=== PATIENT | female | born 1945 | race Caucasian/White ===

== ENCOUNTER → 2016-07-25 | Outpatient (CLI) | payer BC ==
[~2016-07-25] MED LIST: ASPEC81 PO; ATEN-173 PO; ATOR-24 PO; COEN100C11 PO; COEN150C PO; FRRS300 PO; LOSA100T65 PO; LOSA50TA6 PO; MULT-513 PO
--- NOTE | 2016-07-26 14:21 | MAMMOGRAPHY REPORT ---
BILATERAL DIGITAL SCREENING MAMMOGRAM TOMOSYNTHESIS WITH CAD: 07/25/2016 CLINICAL HISTORY: Routine screening. Patient has no complaints. Patient reported occasional bilate ral fluctuating nonfocal itchiness of the breasts. TECHNIQUE: Breast tomosynthesis in addition to standard 2D mammography was performed. Current study was also evaluated with a Computer Aided Detection (CAD) system. COMPARISON: Comparison is made to exams dated: 06/05/2015 mammogram, 01/25/2011 mammogram, 5 mammogram, 09/25/2009 ultrasound, and 08/24/2009 mammogram - [facility]. BREAST COMPOSITION: There are scattered areas of fibroglandular density in both breasts. FINDINGS: There are mild vascular calcifications and scattered benign-appearing rim calcifications a nd rodlike secretory calcifications in the breasts. No suspicious mass, architectural distortion or cluster of microcalcifications is seen. IMPRESSION: ACR BI-RADS CATEGORY 1: NEGATIVE There is no mammographic evidence of malignancy. A 1 year screening mammogram is recommended. Clini curtis follow-up is recommended for the reported nonfocal intermittent bilateral itchiness of the breas ts. The patient will receive written notification of the results. Approximately 10% of breast cancers are not detected with mammography. A negative mammographic repor t should not delay biopsy if a clinically suggestive mass is present. Sybil Pizarro M.D. ay/:07/26/2016 09:40:50 Willow Machine Operator: Veronica DONG)(Barbara), [facility] letter sent: Normal 1/2 BI-RADS Code: ACR BI-RADS Category 1: Negative
== END | disposition home or self-care (01) ==
LOC: C.MAMM 14:48
PROVIDERS: ATTEND Family Medicine
DX: Z12.31 Encounter for screening mammogram for malignant neoplasm of breast (principal)

== ENCOUNTER 2016-08-05 14:54 | Observation (INO) | payer BC ==
[~2016-08-05] VITALS: Ht 160 cm; Wt 83.4 kg
[~2016-08-05 14:54] MED LIST changes: -ASPEC81 PO; -COEN100C11 PO; -LOSA100T65 PO; -MULT-513 PO
[2016-08-05] MEDS ORDERED: SODIUM CHLORIDE 0.9% 1000ML 1,000 ML IV SCH (16:03)
--- NOTE | 2016-08-05 16:13 | EMERGENCY ROOM VISIT NOTE ---
History Report prepared by Hermila: Marissa Narayanan Under the Supervision of: Dr. Cristal Cheema M.D. First contact with patient: 15:59 Chief Complaint: TIA Stated Complaint: R/O TIA Nursing Triage Summary: PCP told patient to come. Neuro symptoms x2 weeks, flashes of light. Memory loss a few days ago and had a loss for words. Saw Dr. Aquino for possible eye problems, unremarkable. History of Present Illness The patient is a 71 year old female who presents to the Emergency Room with complaints of constant TIA symptoms beginning 2 weeks prior to arrival. The patient states that 2 weeks ago she saw flashes of light in her eye that lasted for one minute. She denies vision lost. The patient notes she then again experienced this light in her eye again one week later. She has been having trouble finding the correct word. She was seen by her coremaker supervisor and there is no damage to her retina. The patient then saw PCP and was referred to the ED to rule out TIA possibility. She notes a right sided headache. 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 Review of Systems See HPI for pertinent positives & negatives. A total of 10 systems reviewed and were otherwise negative. Past Medical & Surgical Medical Problems: (1) Hypertension Family History Patient reports no known family medical history. Social History Smoking Status: Former Smoker Marital Status: Housing Status: lives alone Occupation Status: employed Current/Historical Medications Scheduled Atenolol (Tenormin), 25 MG PO DAILY Atorvastatin (Lipitor), 40 MG PO DAILY Coenzyme Q10 (Ubidecarenone) (Coq-10), 100 MG PO DAILY Losartan Potassium (Cozaar), 100 MG PO DAILY Multivitamins/Minerals (Mvi With Minerals), 1 TAB PO DAILY Allergies Coded Allergies: No Known Allergies (Unverified , 10/09/14) Physical Exam Vital Signs Date Time Temp Pulse Resp B/P Pulse Ox O2 Delivery O2 Flow Rate FiO2 08/05/16 20:27 75 16 155/93 93 Room Air 08/05/16 18:42 71 18 175/91 99 Room Air 08/05/16 17:15 18 176/76 98 08/05/16 17:15 99 Room Air 08/05/16 14:59 36.6 85 17 187/99 99 Room Air Physical Exam CONSTITUTIONAL: No acute distress. HEENT: No icterus, moist mucous membranes NECK: No meningismus, trachea is midline. CARDIOVASCULAR: Regular rate, normal perfusion RESPIRATORY: Unlabored breathing. Clear to auscultation. GASTROINTESTINAL: Non-tender GENITOURINARY: No flank tenderness MUSCULOSKELETAL: Full range of motion NEUROLOGIC: No acute gross focal deficits. PSYCHIATRIC: Normal affect SKIN: Normal for ethnicity. Medical Decision & Procedures ER Provider Diagnostic Interpretation: X-ray results as stated below per my interpretation and radiologist interpretation. Other radiology results as stated below per my review and radiologist interpretation. HEAD CT NONCONTRAST CT DOSE: 601.98 mGy.cm HISTORY: Stroke symptoms. TECHNIQUE: Multiaxial CT images of the head were performed without the use of intravenous contrast. Automated exposure control was utilized for this study. Comparison: None. Findings: The paranasal sinuses and mastoid air cells are clear. The calvarium and skull base are intact. The ventricles and sulci are within normal limits. There is no mass, hematoma, midline shift, or acute infarct. A 5 mm hypodense focus within the periventricular white matter the right parietal lobe likely represents an old lacunar infarct. Calcifications within the bilateral carotid siphons. Impression: No acute intracranial abnormality. Electronically signed by: See Castro M.D. 08/05/2016 6:43 PM Dictated Date/Time: 08/05/2016 6:41 PM CHEST ONE VIEW PORTABLE CLINICAL HISTORY: Stroke COMPARISON STUDY: No previous studies for comparison. FINDINGS: The heart is enlarged. There is interstitial thickening, a finding of uncertain chronicity. There is no lobar consolidation. There are no pleural effusions.[ There is calcific tendinitis involving both shoulders. IMPRESSION: Cardiomegaly and interstitial thickening. No evidence of lobar consolidation Electronically signed by: Akin Trent M.D. 08/05/2016 4:22 PM Dictated Date/Time: 08/05/2016 4:21 PM Brain MRI WITH AND WITHOUT CONTRAST HISTORY: visual flashed left eye, trouble finding words today, mild right-sided headache TECHNIQUE: Multiplanar multisequence MRI of the brain was performed both before and after the intravenous administration of contrast. COMPARISON STUDY: None. FINDINGS: There are no areas of restricted diffusion to suggest acute infarction. The midline structures are intact. The paranasal sinuses are clear. The mastoid air cells are clear. The ventricles and sulci are within normal limits for age. There is no mass, hematoma, midline shift. The major vascular flow-voids at the skull base are well maintained. Postcontrast sequences show no areas of abnormal enhancement. A 4 mm focus of encephalomalacia within the right parietal periventricular white matter. This could be due to a prominent perivascular space or old lacunar infarct. There is mild surrounding T2 hyperintensity. IMPRESSION: No acute intracranial abnormality. Electronically signed by: See Castro M.D. 08/05/2016 6:49 PM Dictated Date/Time: 08/05/2016 6:44 PM Laboratory Results 08/05/16 16:40 Red Blood Count 4.00, Mean Corpuscular Volume 91.0, Mean Corpuscular Hemoglobin 31.3, Mean Corpuscular Hemoglobin Concent 34.3, Mean Platelet Volume 9.4, Neutrophils (%) (Auto) 74.0, Lymphocytes (%) (Auto) 15.2, Monocytes (%) (Auto) 6.3, Eosinophils (%) (Auto) 4.1, Basophils (%) (Auto) 0.2, Neutrophils # (Auto) 6.56, Lymphocytes # (Auto) 1.35, Monocytes # (Auto) 0.56, Eosinophils # (Auto) 0.36, Basophils # (Auto) 0.02 08/05/16 16:40 Test 08/05/16 16:40 08/05/16 16:59 White Blood Count 8.87 K/uL (4.8-10.8) Red Blood Count 4.00 M/uL (4.2-5.4) Hemoglobin 12.5 g/dL (12.0-16.0) Hematocrit 36.4 % (37-47) Mean Corpuscular Volume 91.0 fL (80-100) Mean Corpuscular Hemoglobin 31.3 pg (25-34) Mean Corpuscular Hemoglobin Concent 34.3 g/dl (32-36) Platelet Count 202 K/uL (130-400) Mean Platelet Volume 9.4 fL (7.4-10.4) Neutrophils (%) (Auto) 74.0 % Lymphocytes (%) (Auto) 15.2 % Monocytes (%) (Auto) 6.3 % Eosinophils (%) (Auto) 4.1 % Basophils (%) (Auto) 0.2 % Neutrophils # (Auto) 6.56 K/uL (1.4-6.5) Lymphocytes # (Auto) 1.35 K/uL (1.2-3.4) Monocytes # (Auto) 0.56 K/uL (0.11-0.59) Eosinophils # (Auto) 0.36 K/uL (0-0.5) Basophils # (Auto) 0.02 K/uL (0-0.2) RDW Standard Deviation 43.5 fL (36.4-46.3) RDW Coefficient of Variation 13.1 % (11.5-14.5) Immature Granulocyte % (Auto) 0.2 % Immature Granulocyte # (Auto) 0.02 K/uL (0.00-0.02) Prothrombin Time 10.0 SECONDS (9.0-12.0) Prothromb Time International Ratio 0.9 (0.9-1.1) Activated Partial Thromboplast Time 26.9 SECONDS (21.0-31.0) Partial Thromboplastin Ratio 1.0 Anion Gap 12.0 mmol/L (3-11) Est Creatinine Clear Calc Drug Dose 55.7 ml/min Estimated GFR () 70.2 Estimated GFR (Non- 60.6 BUN/Creatinine Ratio 19.5 (10-20) Calcium Level 9.2 mg/dl (8.5-10.1) Total Creatine Kinase 72 U/L (26-192) Creatine Kinase MB 2.5 ng/ml (0.5-3.6) Creatine Kinase MB Ratio 3.5 (0-3.0) Troponin I < 0.015 ng/ml (0-0.045) Bedside Glucose 101 mg/dl (70-90) Labs reviewed by ED physician. Medications Administered Medications (Trade) Dose Ordered Sig/Rose Route Start Time Stop Time Status Last Admin Dose Admin Sodium Chloride (Nss 1000ml) 1,000 ml @ 50 mls/hr Q20H IV 08/05/16 16:03 09/04/16 16:02 08/05/16 18:40 50 MLS/HR Aspirin (Aspirin Chew) 81 mg NOW PO 1/27/17 19:00 09/04/16 18:59 08/05/16 19:06 81 MG ECG Indication: other (TIA symptoms) Rate (beats per minute): 65 Rhythm: normal sinus Findings: no ectopy, other (normal axis, nonspecific ST fidnings ) ED Course 1603: Sodium Chloride 1,000 ml @ 50 mls/hr IV. 1606: Past medical records reviewed. The patient was evaluated in room C6. A complete history and physical examination was performed. 1830: Gadavist 8 mmol IV. 1850: Discussed the patient's case with Dr. Nacho KENNY. The patient will be evaluated for further management. 190: Aspirin Chew 81 mg PO. Medical Decision Differential diagnoses include but are not limited to; TIA, complex migraine. 71-year-old presents into the emergency department for TIA workup at the prompting of the primary care office. Patient notes she had flashes of light in the left eye 3 weeks ago followed by period of 2 weeks with no symptoms and another episode of flashing of lights in the left eye 6 days ago. She was seen by the PA in the primary care office and notes she was seen by her coremaker supervisor who informed her that she had no retinal pathology. Upon neurologic examination in the primary care office today she was noted to have word finding difficulties at times although she is asymptomatic on presentation emergency room. Review of systems negative for focal neurologic complaints patient appears well and is neurologically intact this time. CT imaging negative for bleed and MRI subsequently normal as well. Aspirin 81 mg by mouth ordered and observation arranged with Dr. Griffith of the hospital service for TIA workup. Consults Time Called: 1849 Consulting Physician: Dr. Nacho KENNY Returned Call: 1850 Discussed the patient's case. The patient will be evaluated for further management. Impression Primary Impression: TIA (transient ischemic attack) Scribe Attestation The scribe's documentation has been prepared under my direction and personally reviewed by me in its entirety. I confirm that the note above accurately reflects all work, treatment, procedures, and medical decision making performed by me. Departure Information Dispostion Being Evaluated By Hospitalist Referrals No Doctor, Assigned (PCP)
--- NOTE | 2016-08-05 16:24 | DIAGNOSTIC IMAGING REPORT ---
CHEST ONE VIEW PORTABLE CLINICAL HISTORY: Stroke COMPARISON STUDY: No previous studies for comparison. FINDINGS: The heart is enlarged. There is interstitial thickening, a finding of uncertain chronicity. There is no lobar consolidation. There are no pleural effusions.[ There is calcific tendinitis involving both shoulders. IMPRESSION: Cardiomegaly and interstitial thickening. No evidence of lobar consolidation Electronically signed by: Akin Trent M.D. 08/05/2016 4:22 PM Dictated Date/Time: 08/05/2016 4:21 PM
[2016-08-05] MEDS ORDERED: MULT-513 PO (16:29)
[2016-08-05] MEDS ORDERED: COEN100C11 PO (16:29)
[2016-08-05] MEDS ORDERED: LOSA100T65 PO (16:29)
[2016-08-05 16:49] LABS: BASO % 0.2 %; BASO ABS # 0.02 K/uL (0-0.2); COMPLETE YES; EOS % 4.1 %; HEMATOCRIT 36.4 % (37-47); IG% 0.2 %; LYMPH % 15.2 %; LYMPH ABS # 1.35 K/uL (1.2-3.4); MEAN CORPUSCULAR HEMOGLOBIN 31.3 pg (25-34); MEAN CORPUSCULAR HGB CONC 34.3 g/dl (32-36); MEAN PLATELET VOLUME 9.4 fL (7.4-10.4); MONO % 6.3 %; PLATELET COUNT 202 K/uL (130-400); WHITE BLOOD COUNT 8.87 K/uL (4.8-10.8)
[2016-08-05 17:03] LABS: INR 0.9 (0.9-1.1)
[2016-08-05 17:14] LABS: BLOOD UREA NITROGEN 18 mg/dl (7-18); BUN/CREATININE RATIO 19.5 (10-20); CALCIUM 9.2 mg/dl (8.5-10.1); CARBON DIOXIDE 24 mmol/L (21-32); CHLORIDE 106 mmol/L (98-107); CREATININE 0.94 mg/dl (0.60-1.20); GLUCOSE 107 mg/dl (70-99); POTASSIUM 3.6 mmol/L (3.5-5.1); SODIUM 142 mmol/L (136-145)
[2016-08-05 17:19] LABS: CKMB/CK RATIO 3.5 (0-3.0)
[2016-08-05] MEDS ORDERED: GADAVIST IV PRN (18:30)
--- NOTE | 2016-08-05 18:45 | DIAGNOSTIC IMAGING REPORT ---
HEAD CT NONCONTRAST CT DOSE: 601.98 mGy.cm HISTORY: Stroke symptoms. TECHNIQUE: Multiaxial CT images of the head were performed without the use of intravenous contrast. Automated exposure control was utilized for this study. Comparison: None. Findings: The paranasal sinuses and mastoid air cells are clear. The calvarium and skull base are intact. The ventricles and sulci are within normal limits. There is no mass, hematoma, midline shift, or acute infarct. A 5 mm hypodense focus within the periventricular white matter the right parietal lobe likely represents an old lacunar infarct. Calcifications within the bilateral carotid siphons. Impression: No acute intracranial abnormality. Electronically signed by: See Castro M.D. 08/05/2016 6:43 PM Dictated Date/Time: 08/05/2016 6:41 PM
--- NOTE | 2016-08-05 18:50 | DIAGNOSTIC IMAGING REPORT ---
Brain MRI WITH AND WITHOUT CONTRAST HISTORY: visual flashed left eye, trouble finding words today, mild right-sided headache TECHNIQUE: Multiplanar multisequence MRI of the brain was performed both before and after the intravenous administration of contrast. COMPARISON STUDY: None. FINDINGS: There are no areas of restricted diffusion to suggest acute infarction. The midline structures are intact. The paranasal sinuses are clear. The mastoid air cells are clear. The ventricles and sulci are within normal limits for age. There is no mass, hematoma, midline shift. The major vascular flow-voids at the skull base are well maintained. Postcontrast sequences show no areas of abnormal enhancement. A 4 mm focus of encephalomalacia within the right parietal periventricular white matter. This could be due to a prominent perivascular space or old lacunar infarct. There is mild surrounding T2 hyperintensity. IMPRESSION: No acute intracranial abnormality. Electronically signed by: See Castro M.D. 08/05/2016 6:49 PM Dictated Date/Time: 08/05/2016 6:44 PM
[2016-08-05] MEDS ORDERED: ASPIRIN 81 MG CHEW PO SCH (19:00)
[2016-08-05] MEDS ORDERED: PHARMACIST DISCHARGE MED REC CONSULT PRN (20:15)
[2016-08-05] MEDS ORDERED: PNEUMOCOCCAL POLYSACCHARIDES 25 MCG/0.5 ML VIAL/SYR IM. ONE (20:15)
[2016-08-05] MEDS ORDERED: ONDANSETRON INJ 2 MG/ML 2 ML VIAL IV PRN (20:15)
[2016-08-05] MEDS ORDERED: ALUMINUM/MAGNESIUM/SIMETH (MAALOX MAX) 30 ML UDC PO PRN (20:15)
[2016-08-05] MEDS ORDERED: INFLUENZA VIRUS QUAD VACCINE 0.5 ML SYR IM. ONE (20:15)
[2016-08-05] MEDS ORDERED: POLYETHYLENE (MIRALAX) 17 GM PACK PO PRN (20:15)
[2016-08-05] MEDS ORDERED: ACETAMINOPHEN 325 MG TAB PO PRN (20:15)
[2016-08-05] MEDS ORDERED: NITROGLYCERIN 0.4 MG SL PER TAB CHARGE SL PRN (20:15)
[2016-08-05] MEDS ORDERED: MAGNESIUM HYDROXIDE SUSP 30 ML UDC PO PRN (20:15)
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
[2016-08-05] MEDS ORDERED: PNEUMOCOCCAL ADMINISTRATION CHARGE ONE (21:15)
[2016-08-05] MEDS ORDERED: INFLUENZA ADMINISTRATION CHARGE ONE (21:15)
[2016-08-05 21:37] VITALS: BP 186/75; PULSE 74; TEMP 36.6; O2SAT 94; Ht 160 cm; Wt 83.4 kg
--- NOTE | 2016-08-05 21:38 | DIAGNOSTIC IMAGING REPORT ---
CAROTID ARTERY ULTRASOUND CLINICAL HISTORY: Transient ischemic attack. COMPARISON STUDY: None. TECHNIQUE: Real-time, grayscale, and color Doppler sonography of the carotid and vertebral arteries was performed. Images were viewed in the transverse and longitudinal planes. FINDINGS: There is mild atherosclerotic plaque. Velocity measurements are listed below. COMMON CAROTID PEAK SYSTOLIC VELOCITY (CM/S): RIGHT 87 LEFT 100 ICA PEAK SYSTOLIC VELOCITY (CM/S): RIGHT 92 LEFT 77 The systolic ratios between the internal to common carotid arteries were normal. Antegrade flow is seen in the vertebral arteries. The external carotid arteries are patent. Blood pressure in the right arm measured 162/77. Blood pressure in the left arm measured 138/72. IMPRESSION: No evidence of a hemodynamically significant stenosis. Electronically signed by: Santana Funez M.D. 08/05/2016 9:37 PM Dictated Date/Time: 08/05/2016 9:34 PM
[2016-08-05 21:53] VITALS: BP 150/76
[2016-08-05 22:38] LABS: BENZODIAZEPINE, URINE NEG (NEG); COCAINE,URINE NEG (NEG); PHENCYCLIDINE, URINE NEG (NEG)
[2016-08-05 23:34] VITALS: BP 159/75; PULSE 77; TEMP 36.5; O2SAT 95
[2016-08-06 03:38] VITALS: BP 153/72; PULSE 63; TEMP 36.6; O2SAT 97
[2016-08-06 07:07] LABS: BUN/CREATININE RATIO 19.9 (10-20); CREATININE 0.89 mg/dl (0.60-1.20); ESTIMATED AVERAGE GLUCOSE 128 mg/dl; HA1C FLAG Normal (Normal); POTASSIUM 3.9 mmol/L (3.5-5.1)
[2016-08-06 07:56] VITALS: BP 136/75; PULSE 61; TEMP 36.7; O2SAT 96
[2016-08-06] MEDS ORDERED: CEROVITE ADV FORMULA TAB PO SCH (09:00)
[2016-08-06] MEDS ORDERED: LOSARTAN POTASSIUM 50 MG TAB PO SCH (09:00)
[2016-08-06] MEDS ORDERED: ATORVASTATIN 20 MG TAB PO SCH (09:00)
[2016-08-06] MEDS ORDERED: ASPIRIN 81 MG ECTAB PO SCH (09:00)
[2016-08-06 12:26] VITALS: BP 170/82; PULSE 62; TEMP 36.7; O2SAT 98
--- NOTE | 2016-08-06 14:30 | ECHOCARDIOGRAM REPORT ---
*NOTICE TO RECEIVING [employer] This information is strictly Confidential and protected under [place] law. [place] law prohibits you from making any further disclosure of this information unless further disclosure is expressly permitted by the written consent of the person to whom it pertains or is authorized by law. A general authorization for the release of medical or other information is not sufficient for this purpose. Hospital accepts no responsibility if the information is made available to any other person, INCLUDING THE PATIENT. Interpretation Summary * Name: ABDON GUZMAN Study Date: 08/06/2016 11:04 AM BP: 136/75 mmHg * Patient Location: C.2T\S\S240\S\1 HR: 61 * : 1945 (M/d/yyyy) Gender: Female Height: 63 in * Age: 71 yrs Ethnicity: [place] Weight: 187 lb * Ordering Physician: Anna Xiong * Referring Physician: Self, Referred * Performed By: Stephie Wood RDCS * * Reason For Study: CEREBRAL ISCHEMIA/ EMBOLUS * BSA: 1.9 m2 * History: CEREBRAL ISCHEMIA/ EMBOLUS * -- Conclusions -- * 1. Normal left ventricular size and systolic function. EF 60-65%. No regional wall motion abnormalities. No left ventricular hypertrophy. Type 1 diastolic dysfunction. * 2. No evidence of right to left shunt at the interatrial level following injection of agitated saline. * 3. Mild left atrial dilation. * 4. No significant valvular abnormalities visualized. * 5. Normal estimated right ventricular systolic pressure; 28 mmHg. * 6. No significant change from prior study on 07/28/2011. Procedure Details * A saline contrast injection was performed to assess for cardiac shunting. * The injection was performed through an intravenous line in the right arm. * The attending nurse who injected the saline contrast was GAYLE SPENCER RN. * A total of 20 cc of agitated saline was given. Left Ventricle * Normal left ventricular size and systolic function. EF 60-65%. No regional wall motion abnormalities. No left ventricular hypertrophy. Type 1 diastolic dysfunction. Right Ventricle * The right ventricle is normal in size and function. * The right ventricular systolic function is normal as assessed by tricuspid annular plane systolic excursion (TAPSE) (normal >1.5 cm). Atria * The left atrium is mildly dilated. * Right atrial size is normal. * There is no evidence of atrial septal defect, but resolution does not allow assessment for a patent foramen ovale. * No evidence of right to left shunt at the interatrial level following injection of agitated saline. Mitral Valve * The mitral valve leaflets appear normal. There is no evidence of stenosis, fluttering, or prolapse. * There is trace mitral regurgitation. Tricuspid Valve * The tricuspid valve is not well visualized, but is grossly normal. * There is no tricuspid stenosis. * There is trace tricuspid regurgitation. Aortic Valve * The aortic valve is normal in structure and function. * No hemodynamically significant valvular aortic stenosis. * Trace aortic regurgitation. Pulmonic Valve * The pulmonary valve is inadequately visualized, but the Doppler data is adequate for interpretation. * There is no pulmonic valvular stenosis. * Trace pulmonic valvular regurgitation. Great Vessels * The aortic root is normal size. * Aortic arch of normal dimension. * Normal pulmonary venous flow pattern. Pericardium/Pleural * There is no pericardial effusion. Great Vessels * Normal inferior vena cava size and collapsability with sniff indicates a normal right atrial pressure of 3 mmHg Left Ventricular Diastolic Function * Grade I diastolic dysfunction, (abnormal relaxation pattern). MMode 2D Measurements and Calculations IVSd 1.1 cm IVSs 1.6 cm LVIDd 4.2 cm LVIDs 2.6 cm LVPWd 1.0 cm LVPWs 1.5 cm IVS/LVPW 1.0 FS 37.1 % EDV(Teich) 78.0 ml ESV(Teich) 25.4 ml EF(Teich) 67.4 % EDV(cubed) 73.4 ml ESV(cubed) 18.3 ml EF(cubed) 75.1 % % IVS thick 49.7 % % LVPW thick 43.5 % LV mass(C)d 144.6 grams LV mass(C)dI 77.0 grams/m\S\2 LV mass(C)s 138.5 grams LV mass(C)sI 73.8 grams/m\S\2 SV(Teich) 52.6 ml SI(Teich) 28.0 ml/m\S\2 SV(cubed) 55.1 ml SI(cubed) 29.4 ml/m\S\2 Ao root diam 3.4 cm Ao root area 9.0 cm\S\2 LA dimension 4.6 cm LA/Ao 1.4 LVAd ap4 32.4 cm\S\2 LVLd ap4 8.1 cm EDV(MOD-sp4) 104.8 ml EDV(sp4-el) 110.2 ml LVAs ap4 17.1 cm\S\2 LVLs ap4 6.7 cm ESV(MOD-sp4) 38.2 ml ESV(sp4-el) 37.0 ml EF(MOD-sp4) 63.5 % EF(sp4-el) 66.5 % LVAd ap2 30.6 cm\S\2 LVLd ap2 8.1 cm EDV(MOD-sp2) 95.2 ml EDV(sp2-el) 98.5 ml LVAs ap2 19.1 cm\S\2 LVLs ap2 7.0 cm ESV(MOD-sp2) 44.6 ml ESV(sp2-el) 44.1 ml EF(MOD-sp2) 53.2 % EF(sp2-el) 55.3 % LVLd %diff -3.90 % EDV(MOD-bp) 110.7 ml LVLs %diff 3.2 % ESV(MOD-bp) 41.7 ml EF(MOD-bp) 62.4 % SV(MOD-sp4) 66.6 ml SI(MOD-sp4) 35.5 ml/m\S\2 SV(MOD-sp2) 50.6 ml SI(MOD-sp2) 27.0 ml/m\S\2 SV(MOD-bp) 69.0 ml SI(MOD-bp) 36.8 ml/m\S\2 SV(sp4-el) 73.3 ml SI(sp4-el) 39.0 ml/m\S\2 SV(sp2-el) 54.5 ml SI(sp2-el) 29.0 ml/m\S\2 Doppler Measurements and Calculations MV E max teodoro 78.7 cm/sec MV A max teodoro 83.6 cm/sec MV E/A 0.94 MV dec time 0.21 sec Ao V2 max 133.7 cm/sec Ao max PG 7.2 mmHg Ao max PG (full) 2.0 mmHg LV V1 max PG 5.1 mmHg LV V1 max 113.2 cm/sec TV E max teodoro 31.3 cm/sec TR max teodoro 248.4 cm/sec RVSP(TR) 27.7 mmHg RAP systole 3.0 mmHg
[2016-08-06 15:16] VITALS: BP 156/84; PULSE 57; TEMP 36.7; O2SAT 97
[2016-08-06] MEDS ORDERED: ASPEC81 PO (18:28)
--- NOTE | 2016-08-06 18:30 | Discharge Instructions ---
Discharge Instructions Admission Reason for Admission: TIA Discharge Discharge Diagnosis / Problem: TIA Discharge Goals Goal(s): Improve disease control, Diagnostic testing Activity Recommendations Activity Limitations: resume your previous activity Driving or Machine Use: no limitations . Instructions / Follow-Up Instructions / Follow-Up Follow up with your PCP in 5-7 days. Current Hospital Diet Patient's current hospital diet: AHA Diet (Heart Healthy) Discharge Diet Recommended Diet: AHA Diet (Heart Healthy) Procedures Procedures Performed: NONE Pending Studies Studies pending at discharge: no Laboratory Results Hemoglobin A1c Test 08/06/16 06:12 Range/Units Estimated Average Glucose 128 mg/dl Hemoglobin A1c 6.1 H 4.5-5.6 % Medical Emergencies . Who to Call and When: Medical Emergencies: If at any time you feel your situation is an emergency, please call 911 immediately. . Non-Emergent Contact Non-Emergency issues call your: Primary Care Provider . . "Provider Documentation" section prepared by Trent Solano. VTE Core Measure Inpt VTE Proph given/why not?: Shon Mitchell, SCD's
[2016-08-06 18:33] VITALS: BP 156/84; PULSE 57; TEMP 36.7; O2SAT 97
--- NOTE | 2016-08-08 14:19 | Discharge Summary ---
Discharge Summary Admission Date: Aug 05, 2016 at 21:21 Discharge Date: Aug 06, 2016 Discharge Disposition: Home Principal Diagnosis: TIA Problems/Secondary Diagnoses: HTN Procedures: None. Consultations: None. Medication Reconciliation New Medications: Aspirin (Aspirin EC Low Dose) 81 Mg Ectab 81 MG PO DAILY for 30 Days, #30 0 Refills NS Continued Medications: Atenolol (Tenormin) 25 Mg Tab 25 MG PO DAILY, TAB Atorvastatin (Lipitor) 40 Mg Tab 40 MG PO DAILY, TAB Coenzyme Q10 (Ubidecarenone) (Coq-10) 100 Mg Cap 100 MG PO DAILY Losartan Potassium (Cozaar) 100 Mg Tab 100 MG PO DAILY, TAB Multivitamins/Minerals (Mvi With Minerals) Tab 1 TAB PO DAILY, TAB Discharge Exam A 10 system review was performed and all were negative. Positives were placed in the subjective section. GEN: Awake, alert, and oriented x 3. Not in acute distress HEENT: Tm's intact, no inflammation, EOMI, PERRLA, MMM Neck: Soft, supple Lungs: CTA b/l, no r/r/w Heart: REG, nrl S1S2 without murmurs, rubs or gallops Abdomen: Soft, NT, ND, + BS EXT: No C/C/E NEURO: CN's II-XII grossly intact, non-focal Skin: warm, dry, no rashes PSYCH: pleasant, cooperative, no signs of significant anxiety or depression. Hospital Course Patient was admitted for a transient episode of difficulty speaking. The episode occurred 2 days prior to admission. She did not have a headache. No facial droop. No weakness or paralysis. The episode lasted less than 2 minutes according to patient. She was placed on telemetry unit and underwent carotid dopplers, MRI of the brain, CT scan of the brain, echocardiogram, and chest X-ray. Each of these studies were unremarkable. Refer to the complete report for details. Her EF was 60-65%. She had no arrhythmias on tele. She had no symptoms in the hospital. She was advised to take an 81mg aspirin and was discharged to home. Total Time Spent: Greater than 30 minutes This includes examination of the patient, discharge planning, medication reconciliation, and communication with other providers. Discharge Instructions Please refer to the electronic Patient Visit Report (Discharge Instructions) for additional information. Follow-Up PCP in 5-7 days.
== END 2016-08-06 19:35 | disposition home or self-care (01) ==
LOC: ENRESERVDT → ENRESERVTM → C.EDB 14:57 → C.2T 21:21
PROVIDERS: ADMIT Internal Medicine; ATTEND Internal Medicine
DX: G45.9 Transient cerebral ischemic attack, unspecified (principal); I10 Essential (primary) hypertension; E78.5 Hyperlipidemia, unspecified; Z87.891 Personal history of nicotine dependence; Z82.49 Family history of ischemic heart disease and other diseases of the circulatory system

== ENCOUNTER → 2018-02-22 | Outpatient (CLI) | payer BC ==
[~2018-02-22] MED LIST changes: +ASPI-320 PO; +COEN100C11 PO; -COEN150C PO; -FRRS300 PO; +LOSA100T65 PO; -LOSA50TA6 PO; +MULT-513 PO
--- NOTE | 2018-02-22 09:05 | DIAGNOSTIC IMAGING REPORT ---
R SHOULDER MIN 2 VIEWS ROUTINE CLINICAL HISTORY: R SHOULDER PAIN pain COMPARISON: None. DISCUSSION: The bones and joint spaces appear intact. There is no evidence of fracture, dislocation or bony disease. Pain post weightbearing shows no significant subluxation of the acromioclavicular joint. Findings of considerable calcific supraspinatus tendinitis. IMPRESSION: Calcific supraspinatus tendinitis. Degenerative change. No evidence for subluxation with weightbearing. The above report was generated using voice recognition software. It may contain grammatical, syntax or spelling errors. Electronically signed by: Cristhian Alejandre M.D. 02/22/2018 9:03 AM Dictated Date/Time: 02/22/2018 9:01 AM
== END | disposition home or self-care (01) ==
LOC: C.RAD 08:32
PROVIDERS: ATTEND Physician Assistant
DX: M25.511 Pain in right shoulder (principal); M75.31 Calcific tendinitis of right shoulder

== ENCOUNTER → 2018-03-02 | Outpatient (CLI) | payer BC ==
--- NOTE | 2018-03-05 13:56 | MAMMOGRAPHY REPORT ---
BILATERAL DIGITAL SCREENING MAMMOGRAM TOMOSYNTHESIS WITH CAD: 03/02/2018 CLINICAL HISTORY: Routine screening. Patient has no complaints. TECHNIQUE: Breast tomosynthesis in addition to standard 2D mammography was performed. Current study w as also evaluated with a Computer Aided Detection (CAD) system. COMPARISON: Comparison is made to exams dated: 07/25/2016 mammogram, 07/07/2015 mammogram, 06/05/2015 mammogram, 01/25/2011 mammogram, 09/25/2009 mammogram, and 08/24/2009 mammogram - [facility]. BREAST COMPOSITION: There are scattered areas of fibroglandular density in both breasts. FINDINGS: No suspicious masses, calcifications, or areas of architectural distortion are noted in either breast . There has been no significant interval change compared to prior exams. Scattered bilateral benign-a ppearing calcifications are not significantly changed. IMPRESSION: ACR BI-RADS CATEGORY 2: BENIGN There is no mammographic evidence of malignancy. A 1 year screening mammogram is recommended.( 019) The patient will receive written notification of the results. Some breast cancers are not detected with mammography. A negative mammographic report should not anton y biopsy if a clinically suggestive mass is present. Morelia Hung M.D. /:03/02/2018 15:31:33 Hr Manager: RT Clint(Samantha)(Barbara)(BD), [facility] letter sent: Normal 1/2 BI-RADS Code: ACR BI-RADS Category 2: Benign
== END | disposition home or self-care (01) ==
LOC: C.MAMM 09:38
PROVIDERS: ATTEND Physician Assistant
DX: Z12.31 Encounter for screening mammogram for malignant neoplasm of breast (principal)